=== PATIENT | female | born 1975 | race Two or more races ===

== ENCOUNTER 2017-09-04 18:08 | Emergency (ER) | payer OTHER ==
[~2017-09-04] VITALS: Ht 157.5 cm; Wt 80.7 kg
[~2017-09-04 18:08] MED LIST: LISIPOW; PRO-AIR; TEMAZEPAM
[2017-09-04 18:11] VITALS: BP 145/95
== END 2017-09-05 00:37 | disposition left against medical advice (07) ==
LOC: ER 18:08
DX: R07.9 Chest pain, unspecified (principal); Z53.21 Procedure and treatment not carried out due to patient leaving prior to being seen by health care provider
CPT/HCPCS: 93005

== ENCOUNTER 2020-09-18 21:04 | Emergency (ER) | payer OTHER ==
[~2020-09-18] VITALS: Ht 160 cm; Wt 83.9 kg
[2020-09-18 22:35] VITALS: BP 130/94
== END 2020-09-18 22:44 | disposition home or self-care (01) ==
LOC: ER 21:05
DX: S06.0X0A Concussion without loss of consciousness, initial encounter (principal); S13.9XXA Sprain of joints and ligaments of unspecified parts of neck, initial encounter; S30.0XXA Contusion of lower back and pelvis, initial encounter; F17.210 Nicotine dependence, cigarettes, uncomplicated; I10 Essential (primary) hypertension; X58.XXXA Exposure to other specified factors, initial encounter; Y93.89 Activity, other specified; Y92.89 Other specified places as the place of occurrence of the external cause; Y99.8 Other external cause status
CPT/HCPCS: 70450; 72125; 72170